=== PATIENT | female | born 2000 | race Caucasian/White ===

== ENCOUNTER 2022-03-27 06:28 | Inpatient (IN) | payer OTHER, SELFPAY ==
[2022-03-27] VITALS (109 sets, daily range): BP systolic 83–156; BP diastolic 47–111; PULSE 88–164; RESP 18; TEMP 36.5–37.2; O2SAT 97–100; BMI 281.1
--- NOTE | 2022-03-27 07:08 | LDADM ---
This patient, Janice Escobar, was admitted to Labor/Delivery/Recovery 106 on 03/27/22 at 06:28. Plans for labor, pain management and were discussed with patient. Patient/family oriented to hospital policies and general routines including ID bracelet, bed and alarms, visiting hours, pain management, procedures, bathroom and other care routines, personal items, smoking policy, room service/diet and guest tray routines, security routines, and visiting hours. Patient/Family are encouraged to report perceived risks to care and to ask questions if they do not understand what they are told or what they should do. See OBIX for further documentation.
--- NOTE | 2022-03-27 07:15 | WPDOBADMIT ---
Obstetrics - Admit Note Admission Note: record reviewed. Additions to the history and/or subsequent changes in the physical findings follow. 21 y/o G1 at 40 weeks gestation here for induction of labor. GBS neg. AVSS NST reactive TOCO: irregular contractions ABD soft, nontender, gravid, vertex EXT nontender Cervix 4/50/-2. AROM with clear fluid. Vertex. A: IUP at term with favorable cervix, desiring induction of labor. P: Oxytocin. Anticipate .
[2022-03-27 07:19] LABS: Basophils Absolute Auto 0.1 K/mm3 (0.0-0.1); Basophils Percent Auto 0.4 % (0.2-1.2); Eosinophils Absolute Auto 0.1 K/mm3 (0-0.3); Eosinophils Percent Auto 0.9 % (0-4.4); Hematocrit 36.8 % (37.0-47.0); Hemoglobin 12.4 g/dL (12.0-15.0); Immature Granulocyte Absolute 0.15 K/mm3 (0.00-0.031); Immature Granulocyte Percent A 1.2 % (0-0.5); Lymphocytes Absolute Auto 2.12 K/mm3 (0.9-3.2); Lymphocytes Percent Auto 17.2 % (18.3-44.2); Mean Corpuscular HGB Conc 33.7 g/dl (32-36); Mean Corpuscular Hemoglobin 31.6 pg (26-34); Mean Corpuscular Volume 93.6 fl (80-100); Mean Platelet Volume 11.3 fl (7.4-10.4); Monocytes Absolute Auto 1.1 K/mm3 (0.1-0.6); Monocytes Percent Auto 8.7 % (2.6-8.5); Neutrophils Absolute Auto 8.8 K/mm3 (1.3-6.7); Neutrophils Percent Auto 71.6 % (45.5-73.1); Platelet Count Result 144 k/mm3 (150-375); Red Blood Count 3.93 M/mm3 (4.2-5.4); Red Cell Distribution Width 13.2 % (11.5-14.5); White Blood Count 12.4 K/mm3 (4.5-10.0)
[2022-03-27] MEDS: OXYTOCIN 30 UNITS/NS 500 ML 30 UNITS/500 ML BAG 6 UNITS IV CONT (07:53)
[2022-03-27] MEDS: LACTATED RINGERS 1,000 ML 125 ML IV CONT ×2 (07:53→09:06)
[2022-03-27] MEDS: fentaNYL CITRATE INJ (*CRX) 100 MCG/2 ML VIAL 50 MCG IV PUSH (09:05)
--- NOTE | 2022-03-27 09:29 | WPDANESEPPF ---
Anes - Initial Pre Proc Eval Procedure: labor epidural Date/Time: 03/27/22 09:29 Surgeon: Johan Fermin MD Pre Op Diagnosis: labor pain Pre Op Diagnosis: iol Patient Data Age: 21 Gender: F Height: 60.96 cm Weight: 104.5 kg Last Vital Signs Pulse 103 H 03/27/22 09:27 BP 130/70 03/27/22 09:27 Pulse Ox 99 03/27/22 09:28 O2 Del Method Room Air 03/27/22 07:08 Allergies Allergy/AdvReac Type Severity Reaction Status Date / Time amoxicillin Allergy Hives Verified 03/05/22 15:35 Flu Shot Allergy Rash Uncoded 03/05/22 15:35 MRI contrast Allergy Hives Uncoded 03/05/22 15:35 Home Medications Medication Instructions Recorded Confirmed Type vit no.133-ferrous 1 tablet PO DAILY 03/27/22 03/27/22 History fumarate 28 mg-folic acid 800 mcg tablet () Laboratory Tests 03/27/22 03/27/22 03/27/22 07:04 07:05 07:58 WBC 12.4 K/mm3 H K/mm3 (4.5-10.0) RBC 3.93 M/mm3 L M/mm3 (4.2-5.4) Hgb 12.4 g/dL g/dL (12.0-15.0) Hct 36.8 % L % (37.0-47.0) MCV 93.6 fl fl (80-100) MCH 31.6 pg pg (26-34) MCHC 33.7 g/dl g/dl (32-36) RDW 13.2 % % (11.5-14.5) Plt Count 144 k/mm3 L k/mm3 (150-375) MPV 11.3 fl H fl (7.4-10.4) Immature Gran % (Auto) 1.2 % H % (0-0.5) Neut % (Auto) 71.6 % % (45.5-73.1) Lymph % (Auto) 17.2 % L % (18.3-44.2) [place] % (Auto) 8.7 % H % (2.6-8.5) Eos % (Auto) 0.9 % % (0-4.4) Baso % (Auto) 0.4 % % (0.2-1.2) Lymph # (Auto) 2.12 K/mm3 K/mm3 (0.9-3.2) [place] # (Auto) 1.1 K/mm3 H K/mm3 (0.1-0.6) Eos # (Auto) 0.1 K/mm3 K/mm3 (0-0.3) Baso # (Auto) 0.1 K/mm3 K/mm3 (0.0-0.1) Abs Immat Gran (auto) 0.15 K/mm3 H K/mm3 (0.00-0.031) Absolute Neuts (auto) 8.8 K/mm3 H K/mm3 (1.3-6.7) Absolute Nucleated RBC 0.0 K/mm3 K/mm3 (0.0-0.012) Nucleated RBC % 0.0 % % (0.0-0.2) RPR Pending Blood Type O Positive Antibody Screen Negative Patient hx anesthesia problems: none Family hx anesthesia problems: none Results Review: All pre-operative results and documents have been reviewed as part of the pre-operative evaluation. [facility] Family History Family History (Updated 03/05/22 @ 15:39 by Eva Chen RN) Grandparent Cancer Father Hypertension Mother Autoimmune disease of liver Grandparent Acute myocardial infarction Social History Social History Smoking status: Never smoker Substance use: never Lack of Transportation: No Lack of Food: Never True Current Housing: I Have Housing Concerned About Future Housing: No Difficulty Paying Gas/Electric Bills: No Difficulty Paying for Meds: No Currently Unemployed: No Education: High School Diploma/GED Difficulty w/ Childcare or Family Care: No Spiritual care concerns: No Anes - Eval Final PreProcedure Day of Procedure 03/27/22 09:29 Patient weight: morbidly obese ASA classification: III Anesthetic plan: proceed Anesthesia type and monitoring: regional epidural and standard monitoring Results Review: All pre-operative results and documents have been reviewed as part of the pre-operative evaluation. Informed Consent: The patient's anesthetic plan and its attendant risks and benefits were discussed with the patient/family/POA. Questions were solicited and answers provided to the satisfaction of the patient/family/POA.
[2022-03-27 13:35] LABS: Rapid Plasma Reagin Non-Reactive (NonReactive)
--- NOTE | 2022-03-27 14:24 | PM.OBPRVD ---
OB - Delivery Note Procedure Delivery date: 03/27/22 Procedure: Induction of labor with Induction method: Per Pitocin Protocol Delivery augmentation: Pitocin Delivery monitor: External FHT and External Uterine Route of delivery: Laceration Description: Perineal - 2nd Degree Delivery repair: vicryl (3-0) Specimen: Yes (cord blood) Quantitative Blood Loss (ml): 190 Anesthesia type: Epidural Disposition: PACU Complications: None Narrative: 21 y/o G1 at 40 weeks gestation who presented to the hospital for induction of labor. Oxytocin was administered intravenously. Amniotomy was performed with return of clear fluid. She received an epidural for pain control. Her labor progressed and her cervix dilated completely. She pushed with good effort and delivered the 's head to the perineum. A loose nuchal cord was splinted and the body delivered. The cord was reduced and the nose and mouth were bulb suctioned. After a delay, the cord was clamped and cut. The was handed off the field. Cord blood was collected. The placenta delivered spontaneously and was grossly normal in appearance. The usual 3 vessel cord was noted. A second degree midline perineal laceration was sustained. This was reapproximated using 3 0 Vicryl in the usual layered fashion. Excellent hemostasis resulted as did excellent reapproximation of the normal anatomy. Needle and instrument counts were correct. The patient was taken to recovery room in stable condition. The infant went to the nursery in stable condition. I was present and scrubbed for the entire delivery. Baby Date of : 03/27/22 Time of : 14:04 Weeks of gestation at delivery: 40 gender: Female Weight (pounds): 7 Weight (ounces): 9 presentation: vertex position: Left Occiput Anterior Placenta delivery description: Spontaneous and Normal Configuration Cord Vessel Description: 3 Vessels, Nuchal Cord and Delayed Cord Clamping score one minute: 7 score five minutes: 9
--- NOTE | 2022-03-27 14:26 | PM.OBDSVD ---
DS: Admitting Diagnosis Discharge Date 03/29/22 Admitting Diagnosis IUP at 40 weeks DS: Discharge Diagnosis Discharge Diagnosis (1) (normal spontaneous vaginal delivery): Code(s): O80 - Encounter for full-term uncomplicated delivery Status: Acute OB - DS: Summary OB Procedures : None OB Procedures Intrapartum: Spontaneous Vag Delivery OB Procedures: : None Time Spent with Patient Time attestation: Total time spent providing and/or coordinating discharge services: DS: Data Data Completed and Pending Labs on day of discharge: Labs from last 24 hours 03/27/22 03/27/22 03/27/22 07:58 07:05 07:04 WBC 12.4 H RBC 3.93 L Hgb 12.4 Hct 36.8 L MCV 93.6 MCH 31.6 MCHC 33.7 RDW 13.2 Plt Count 144 L MPV 11.3 H Immature Gran % (Auto) 1.2 H Neut % (Auto) 71.6 Lymph % (Auto) 17.2 L [place] % (Auto) 8.7 H Eos % (Auto) 0.9 Baso % (Auto) 0.4 Lymph # (Auto) 2.12 [place] # (Auto) 1.1 H Eos # (Auto) 0.1 Baso # (Auto) 0.1 Abs Immat Gran (auto) 0.15 H Absolute Neuts (auto) 8.8 H Absolute Nucleated RBC 0.0 Nucleated RBC % 0.0 RPR Non-reactive Blood Type O Positive Antibody Screen Negative Discharge Plan Discharge Attending physician on discharge: Johan Fermin Consulting providers: Marvin Alvarez ; Johanny Dodson Discharging Clinician: Johan Fermin Patient Disposition: Home, Self-Care Activity: pelvic rest Diet: regular Discharge Instructions: Education: Mom and Baby Guide Given to: Mother Follow-Up: Call your delivering provider's office for an appointment to be seen in: 6 Weeks Mom and baby should come to the [facility] for the follow-up appointment. Appointment Date/Time: March 31, 2022 at 9:00 am What to expect at your follow-up visit: Blood Pressure Check Physical Assessment Call [phone] if you are unable to keep your appointment time. BREAST CARE: * Wear a snug supportive bra. * For engorgement discomfort: Breast Feeding: * Apply warm moist washcloths * Express milk as needed to relieve engorgement * Wear loose clothing * For sore nipples: * Identify correct latch-on * Apply warm moist washcloths before and after nursing * Air dry nipples after nursing * May apply Lansinoh cream to nipples PERINEAL CARE: * Until bleeding stops, use your allan bottle after urinating * Change your pad frequently throughout the day * You may take sitz baths several times a day (fill your bathtub with warm water and soak for 20 minutes.) Do NOT bathe in the water * No tub baths until seen by your physician - You may shower ACTIVITY: * Rest as much as possible. * Do not exercise or lift anything heavier than your baby (such as laundry or other children.) * Avoid stairs or driving as much as possible. * Do not put anything into the vagina. No douching, tampons, or sexual activity until seen by physician. NOTIFY PHYSICIAN IF YOU HAVE ANY QUESTIONS OR IF ANY OF THE FOLLOWING SYMPTOMS OCCUR: * If your episiotomy or incision becomes red, swollen, or more painful than what you have experienced in the hospital. * If your vaginal bleeding becomes foul smelling. * If your vaginal bleeding becomes more heavy than a period or if your bleeding changes from pink to bright red. However, you may pass an occasional walnut-sized clot once or twice for the first week . * If you experience a sharp, shooting pain in your calves. * If you discover a hard, reddened area on your breast or if you experience flu-like symptoms. DIET: * Eat regular, well-balanced meals. * Drink plenty of fluids daily. If , drink to thirst. Call or return if temperature above 100.4? F, increased abdominal pain, increased vaginal bleeding or any new problems. Stand Alone Forms: General Discharge Information F
[2022-03-27] MEDS: METHYLERGONOVINE MALEATE 0.2 MG/ML VIAL IM (15:45)
--- NOTE | 2022-03-27 17:10 | OBPPTRN ---
Patient transferred to post room # 277 via wheelchair. Support person present. Oriented to unit, room, information board, rooming in, admission packet and security measures. Patient verbalizes understanding.
[2022-03-27] MEDS: IBUPROFEN 600 MG TABLET PO (22:07)
[2022-03-27] MEDS: ACETAMINOPHEN 325 MG TABLET 650 MG PO (22:07)
[2022-03-28] MEDS: ACETAMINOPHEN 325 MG TABLET 650 MG PO ×3 (04:30→23:29)
[2022-03-28] MEDS: IBUPROFEN 600 MG TABLET PO ×3 (04:30→18:46)
[2022-03-28 04:36] VITALS: BP 126/73; PULSE 104; RESP 18; TEMP 36.8
[2022-03-28 06:13] LABS: Hematocrit 30.2 % (37.0-47.0); Hemoglobin 10.2 g/dL (12.0-15.0)
--- NOTE | 2022-03-28 07:47 | WPDANLDPN2 ---
Anes-Prog Note L&D Date/Time: 03/28/22 07:47 Comfortable throughout: labor and delivery Neuraxial method: epidural Epidural/Spinal procedure site: clean & non-tender Neuro status: Neuro function grossly intact. Cardiovascular status: normal Respiratory status: normal Airway patency: baseline Mental status: baseline Post-Op hydration status: normal Vital Signs: Last Vital Signs Temp 36.8 C 03/28/22 04:36 Pulse 104 H 03/28/22 04:36 Resp 18 03/28/22 04:36 BP 126/73 03/28/22 04:36 Pulse Ox 100 03/27/22 14:02 O2 Del Method Room Air 03/28/22 04:38 Pain score (VAS): 05/20 I/O: Intake & Output 03/27/22 03/27/22 03/28/22 15:59 23:59 07:59 Intake Total 1000 240 Output Total 190 150 Balance 810 90 Post-procedural complaints: none Patient feedback: Patient satisfied with anesthetic care.
[2022-03-28 07:50] VITALS: BP 130/77; PULSE 110; RESP 18; TEMP 37.1; O2SAT 98
--- NOTE | 2022-03-28 08:56 | PM.OBPNVD ---
OB - PN: Subj Subjective Date/time seen: 03/28/22 08:56 Patient comments: no complaints and pain well controlled baby status: doing well OB - PN: Obj Data Labs CBC & Chem 7: 03/28/22 04:04 Labs: Laboratory Results - last 24 hr 03/27/22 03/27/22 03/28/22 07:04 07:58 04:04 Hgb 10.2 L Hct 30.2 L RPR Non-reactive Blood Type O Positive Antibody Screen Negative OB - PN A/P Plan day: 1 Plan: routine care Time Spent With Patient Time: Total time spent is greater than 50% in coordination of care (as documented) at patient's floor/unit and/or counseling patient: Time with patient: less than 15 minutes Exam Const: General: cooperative, healthy appearing and comfortable Nutritional Appearance: average body habitus Orientation/consciousness: oriented to person, oriented to place and oriented to time HENMT: Head: normal to inspection Resp: Effort & Inspection: normal respiratory effort GI: Inspection: normal to inspection ( fundus firm below the umbilicus)
[2022-03-28] MEDS: MULTIVIT/MIN/PREN/FOL AC/IRON TABLET 1 TAB PO (09:56)
[2022-03-28] MEDS: DOCUSATE SODIUM 100 MG CAPSULE PO (09:56)
--- NOTE | 2022-03-28 12:16 | PC.NURSE ---
[id number] Introductions were made, then consulted with patient to assess needs related to . Mother led the conversation with her?plans to feed?her infant and the?experience so far. Resources provided for inpatient and outpatient services using mom/baby guide. Mother voiced understanding of information and will call if there is a request for assistance. Reported to primary RN. [id number] Introductions were made, then consulted with patient to assess needs related to . Mother works well with her with encouragement. Encouraged understanding of the benefits of skin to skin (unwrapping and placing vertically on her chest), responsive feeding and how to watch for early feeding signs, frequency of feeding on demand about every 8-12 times in 24 hours (every 2-3 hours), milk production, duration of feeding, signs of adequate intake/output and how to record on the feeding sheet. Reviewed positioning and ear, shoulder, hip alignment, supporting the breast, asymmetrical latch (off-center), and leading with the chin with a big open side gape. Infant latched optimally to the right breast in cross cradle position. Education given to mother of how to visualize suck/swallow ratios and drinking at the breast. was able to maintain latch without discomfort to mother for 20 minutes. Nipple care reviewed with optimal latch and good positioning. decreased latch, reduced negative pressure on the breast and was detached after observing less than 90 degree latch. Mother placed infant back on her chest and stimulated infant for feeding cues. Mother's left nipple is inverted. makes great attempts with big, open, wide gape to latch and is unable to maintain latch. When infant does latch correctly she is able to pull the grade 2 inverted nipple out but still has difficulty maintaining latch. Discussed with mother the risks and benefits of nipple shield use and pumping the breast. Mother states she would like to try pumping her breast first, then latching her infant for the next practice. Mother is going to eat her breakfast, then call out later for assistance. Resources used to facilitate learning were used with the tool and mom/baby guide. Mother voiced understanding of responsive feedings, stimulating with skin to skin, hand expressed colostrum, massage touch, talking to infant to encourage if it has been 2 -3 hours since the start of the last , to call if infant does not latch or there is discomfort with . Reported to the primary RN.
[2022-03-28 12:30] VITALS: BP 127/72; PULSE 109; RESP 18; TEMP 36.9; O2SAT 98
--- NOTE | 2022-03-28 14:49 | PC.NURSE ---
[id number] Consulted with patient to assess needs related to . Mother works well with her infant. Reviewed working with , breast, nipples and how to protect the nipples with an optimal deep latch, good positioning, and good hand washing. Encouraged understanding the benefits of skin to skin, responding to feeding cues, frequencies of feeding 8-12 times in 24 hours (approximately 2-3 hours), duration of feedings, milk production, intake/output feeding sheet and signs of adequate intake encouraging swallowing at the breast. Reviewed positioning and alignment, supporting breast, off-centered (asymmetrical latch) and leading with the chin with big open wide gape. Several attempts were made to latch infant effectively to the left breast. Infant is unable to maintain latch. After a 15 minute attempt mother agreed with the decision to latch infant to the right breast. Infant latched optimally to the right breast in football position. Education given to mother of how to visualize suck/swallow ratios and listen for drinking at the breast. was able to maintain latch without discomfort to mother. Nipple care reviewed with optimal latch and good positioning and colostrum may be left on nipples to dry but have clean hands when touching the nipple/breast as needed. Breast pump provided due to ineffective on the left breast and to stimulate nipple to latch . Instructions given on cleaning, care, usage, that there should be no pain, pumping schedule for milk production, collection, and storage of human milk. Parents are encouraged to record pumping schedule on the feeding sheet. Patient was assessed for correct placement, flange size, to pump for comfort and nipple stretching/stimulation for adequate milk production every 3 hours (8 times in 24 hours) on the left breast if is not effectively on that side. Mother given a Zomee pump from [employer] through her insurance. Resources used to facilitate learning were used from the tool and mom/baby guide. Mother voiced understanding of the education shared, calling for assistance if the infant does not latch or if there is discomfort with . Reported to the primary RN.
[2022-03-28 18:45] VITALS: BP 124/85; PULSE 110; RESP 18; TEMP 36.8
--- NOTE | 2022-03-29 07:32 | P.PNOB_ITS ---
OB - PN: Subj Subjective Date/time seen: 03/29/22 07:32 Patient comments: no complaints and pain well controlled baby status: doing well OB - PN: Obj Data Labs CBC & Chem 7: 03/28/22 04:04 OB - PN A/P Plan day: 2 Plan: routine care, discharge home and follow up 6 weeks Time Spent With Patient Time: Total time spent is greater than 50% in coordination of care (as documented) at patient's floor/unit and/or counseling patient: Time with patient: less than 15 minutes Exam 2 Const: General: cooperative, healthy appearing and comfortable Nutritional Appearance: average body habitus Orientation/consciousness: oriented to person, oriented to place and oriented to time HENMT: Head: normal to inspection Resp: Effort & Inspection: normal respiratory effort GI: Inspection: normal to inspection (Fundus firm below the umbilicus)
[2022-03-29 08:30] VITALS: BP 139/68; PULSE 109; RESP 16; TEMP 37.2; O2SAT 99
--- NOTE | 2022-03-29 08:30 | PC.NURSE ---
Patient viewed the discharge video Mother & Baby Care, The First Two Weeks . Patient was given the opportunity and encouraged to ask questions. Patient verbalized understanding of information shared and has been given the mother/baby guide for home reference.
[2022-03-29] MEDS: DOCUSATE SODIUM 100 MG CAPSULE PO (08:36)
[2022-03-29] MEDS: IBUPROFEN 600 MG TABLET PO (08:36)
[2022-03-29] MEDS: MULTIVIT/MIN/PREN/FOL AC/IRON TABLET 1 TAB PO (08:36)
[2022-03-31 08:59] VITALS: BP 137/90; PULSE 103; RESP 20; TEMP 37.2; O2SAT 99
== END 2022-03-29 11:25 | disposition home or self-care (01) | DRG 807 ==
LOC: ANHLDR 12:11 → ANHOB2 03-28 12:31 → ANHLDR 04-02 08:40 → ANHOB2 04-02 08:40
PROVIDERS: Admitting Provider Obstetrics & Gynecology; Visit Provider Obstetrics & Gynecology
DX: O69.81X0 Labor and delivery complicated by cord around neck, without compression, not applicable or unspecified (principal); Z37.0 Single live birth; O70.1 Second degree perineal laceration during delivery; Z3A.40 40 weeks gestation of pregnancy
CPT/HCPCS: 36415; 85014; 85018; 85025; 86592; 86850; 86900; 86901; A9270; J2210; J2590; J2795; J3010; J7120

== ENCOUNTER → 2023-05-14 10:04 | Outpatient (CLI) | payer BC, SELFPAY ==
--- NOTE | ~2023-05-14 | US_ITS ---
EXAMINATION: US OB /maternal detail DATE: 05/14/2023 10:47 INDICATION: Second trimester anatomic survey TECHNIQUE: Real-time ultrasound of the pelvis was performed. COMPARISON: None. FINDINGS: There is a single living fetus in vertex presentation. The placenta is posterior and 9 mm from the in ternal cervical os. Placental lakes are noted. The measured cervical length is 3.4 cm. heart ra te is 163 beats per minute (bpm). cardiac activity and movement are noted. The amniotic fluid index is subjectively normal. The following anatomy was identified as normal: 4 chamber heart 3 vessel cord cord insertion kidneys urinary bladder stomach spine diaphragm ventricles cisterna magna cerebellum The following biometric data were obtained: Biparietal diameter (BPD): 4.4 cm; head circumference (HC): 16.5 cm; abdominal circumference (AC): 15 .4 cm; femur length (FL): 3.1 cm. These measurements are concordant. Estimated weight is 329 g +/- 49 g, which correlates with the 74th percentile when 10/04/2023 is used as estimated date of delivery. As single measurements, these parameters are each equal to the following estimated gestational ages w ith ranges of +/- 2 standard deviations: BPD: 19 weeks 2 days ( 17 weeks 3 days - 21 weeks 0 days). HC: 19 weeks 2 days ( 17 weeks 5 days - 20 weeks 5 days). AC: 20 weeks 4 days ( 18 weeks 4 days - 22 weeks 4 days). FL: 19 weeks 5 days ( 18 weeks 0 days - 21 weeks 4 days). estimated gestational age based solely on measurements from this exam is 19 weeks 5 days +/- 1 weeks 3 days. IMPRESSION: 1. Single living fetus in vertex presentation. 2. Estimated weight is 329 g +/- 49 g, which correlates with the 74th percentile when 10/04/2023 is used as estimated date of delivery. 3. Low-lying placenta. Reviewed, dictated and finalized at location A. [facility] IMPRESSION: 1. Single living fetus in vertex presentation. 2. Estimated weight is 329 g +/- 49 g, which correlates with the 74th per centile when 10/04/2023 is used as estimated date of delivery. 3. Low-lying placenta.
== END ==
PROVIDERS: PCP Obstetrics & Gynecology; Visit Provider Obstetrics & Gynecology
DX: Z36.3 Encounter for antenatal screening for malformations (principal); Z3A.19 19 weeks gestation of pregnancy
CPT/HCPCS: 76805

== ENCOUNTER 2023-08-05 12:18 | Outpatient (RCR) | payer BC, SELFPAY ==
[2023-08-05 13:24] VITALS: BP 122/62; PULSE 111
== END 2023-10-26 08:18 | disposition home or self-care (01) ==
LOC: ANHOBOP 12:18
PROVIDERS: PCP Internal Medicine; Visit Provider Obstetrics & Gynecology
DX: O36.8130 Decreased fetal movements, third trimester, not applicable or unspecified (principal); Z3A.31 31 weeks gestation of pregnancy
CPT/HCPCS: 59025

== ENCOUNTER 2023-08-22 12:08 | Observation (INO) | payer BC, SELFPAY ==
[2023-08-22] VITALS (8 sets, daily range): BP systolic 112–134; BP diastolic 60–74; PULSE 93–110; BMI 40.3
--- NOTE | 2023-08-22 12:15 | OBADM ---
This patient, Janice Escobar, admitted to the OB room OB Post 113 for observation. Patient/family oriented to hospital policies and general routines including ID bracelet, bed and alarms, visiting hours, pain management, procedures, bathroom and other care routines, personal items, smoking policy, room service/diet, and visiting hours. Patient/Family are encouraged to report perceived risks to care and to ask questions if they do not understand what they are told or what they should do.
--- NOTE | 2023-08-22 13:01 | PC.NURSE ---
Dr Villarreal notified of contractions and negative ROM plus. Orders received.
[2023-08-22] MEDS: TERBUTALINE SULFATE 1 MG/ML VIAL 0.25 MG SUB-Q (13:36)
[2023-08-22 13:59] LABS: Appearance Urine Cloudy (Clear); Bacteria Urine 2+ /hpf; Bilirubin Urine Negative (Negative); Blood Urine 2+ (Negative); Color Urine Yellow (Yellow); Glucose Urine UA Trace mg/dL (Negative); Ketones Urine Negative (Negative); Leukocyte Esterase Ur 2+ LEU/UL (Negative); Need Manual Microscopic Reviewed; Nitrate Urine Negative (Negative); Non Pathogenic Casts 0-2; Protein Urine Negative (Negative); RBC Urine 0-2 /hpf (0-2); Squamous Epithelial Cell Urine Many /hpf (Few); Urobilinogen Urine 0.2 mg/dL (<2.0); WBC Urine 21-50 /hpf (0-3)
[2023-08-22 14:02] LABS: Add Urine Microscopic? YES
--- NOTE | 2023-08-28 13:25 | PM.OBTRLD ---
OB - Triage/Final Diagnosis Visit Information Reason for evaluation: other (vaginal discharge) Comments/Additional reasons for admission: I have assessed the risk for this patient, Janice Escobar, and determined that she would benefit from observation care. Evaluation Laboratory results: Laboratory Tests 08/22/23 13:30 Urine Color Yellow Urine Appearance Cloudy H Urine pH 7.0 Ur Specific [place] 1.010 Urine Protein Negative Urine Glucose (UA) Trace H Urine Ketones Negative Ur Blood (Man) 2+ H Urine Nitrate Negative Urine Bilirubin Negative Urine Urobilinogen 0.2 Add Ur Microanalysis Reviewed Leukocyte Esterase Rfl 2+ H Urine RBC 0-2 Urine WBC 21-50 H Ur Squamous Epith Cells Many H Urine Bacteria 2+ H Urine Casts 0-2
== END 2023-08-22 14:45 | disposition home or self-care (01) ==
PROVIDERS: Admitting Provider Obstetrics & Gynecology Gynecology; PCP Internal Medicine; Visit Provider Obstetrics & Gynecology Gynecology
DX: O26.893 Other specified pregnancy related conditions, third trimester (principal); N89.8 Other specified noninflammatory disorders of vagina; Z3A.33 33 weeks gestation of pregnancy
CPT/HCPCS: 81001; 84112; 87086; 87088; 96372; G0378; G0379; J3105

== ENCOUNTER 2023-09-30 04:56 | Inpatient (IN) | payer BC, SELFPAY ==
[2023-09-30] VITALS (122 sets, daily range): BP systolic 76–141; BP diastolic 30–113; PULSE 74–134; RESP 20; TEMP 36.1–37.2; O2SAT 94–100; BMI 44.3
--- NOTE | 2023-09-30 05:34 | ADMGEN ---
This patient, Janice Escobar, was admitted to Labor/Delivery/Recovery 103-00. Patient/family oriented to hospital policies and general routines including ID bracelet, bed and alarms, visiting hours, pain management, procedures, bathroom and other care routines, personal items, smoking policy, room service/diet, and visiting hours. Information on how to activate the Rapid Response Team has been discussed. Patient/Family are encouraged to report perceived risks to care and to ask questions if they do not understand what they are told or what they should do.
[2023-09-30 05:49] LABS: Basophils Percent Auto 0.2 % (0.2-1.2); Eosinophils Absolute Auto 0.1 K/mm3 (0-0.3); Eosinophils Percent Auto 0.6 % (0-4.4); Hematocrit 38.6 % (37.0-47.0); Hemoglobin 13.2 g/dL (12.0-15.0); Immature Granulocyte Absolute 0.13 K/mm3 (0.00-0.031); Immature Granulocyte Percent A 1.4 % (0-0.5); Immature Platelet Fraction Pct 6.3 % (0.9-11.2); Lymphocytes Absolute Auto 1.43 K/mm3 (0.9-3.2); Lymphocytes Percent Auto 15.4 % (18.3-44.2); Mean Corpuscular HGB Conc 34.2 g/dl (32-36); Mean Corpuscular Hemoglobin 31.8 pg (26-34); Mean Platelet Volume 10.5 fl (7.4-10.4); Monocytes Absolute Auto 0.6 K/mm3 (0.1-0.6); Monocytes Percent Auto 6.7 % (2.6-8.5); Neutrophils Percent Auto 75.7 % (45.5-73.1); Platelet Count Result 120 k/mm3 (150-375); Red Blood Count 4.15 M/mm3 (4.2-5.4); Red Cell Distribution Width 13.8 % (11.5-14.5); White Blood Count 9.3 K/mm3 (4.5-10.0)
[2023-09-30] MEDS: OXYTOCIN 30 UNITS/NS 500 ML 30 UNITS/500 ML BAG IV CONT (06:34)
[2023-09-30] MEDS: LACTATED RINGERS 1,000 ML 125 ML IV CONT ×2 (06:35→07:45)
--- NOTE | 2023-09-30 06:41 | WPDANESEPP ---
Anes - Eval Pre Procedure Procedure: labor epidural Date/Time: 09/30/23 06:41 Surgeon: [email or web address] Preop Diagnosis: pain during labort Pre Op Diagnosis: IOL Patient Data Age: 23 Gender: F Height: 1.57 m Weight: 110 kg Last Vital Signs Pulse 102 H 09/30/23 06:31 BP 136/75 09/30/23 06:31 O2 Del Method Room Air 09/30/23 05:42 Allergies Allergy/AdvReac Type Severity Reaction Status Date / Time amoxicillin Allergy Hives Verified 09/30/23 05:29 Penicillins Allergy Hives Verified 09/30/23 05:29 Flu Shot Allergy Rash Uncoded 09/30/23 05:29 MRI contrast Allergy Hives Uncoded 09/30/23 05:29 Home Medications Medication Instructions Recorded Confirmed Type vit no.133-ferrous 1 tablet PO DAILY 03/27/22 09/30/23 History fumarate 28 mg-folic acid 800 mcg tablet () sertraline 150 mg capsule 150 mg PO DAILY 09/04/23 09/30/23 History Laboratory Tests 09/30/23 05:18 WBC 9.3 K/mm3 (4.5-10.0) RBC 4.15 L M/mm3 (4.2-5.4) Hgb 13.2 D g/dL (12.0-15.0) Hct 38.6 % (37.0-47.0) MCV 93.0 fl (80-100) MCH 31.8 pg (26-34) MCHC 34.2 g/dl (32-36) RDW 13.8 % (11.5-14.5) Plt Count 120 L k/mm3 (150-375) MPV 10.5 H fl (7.4-10.4) Immature Gran % (Auto) 1.4 H % (0-0.5) Neut % (Auto) 75.7 H % (45.5-73.1) Lymph % (Auto) 15.4 L % (18.3-44.2) [place] % (Auto) 6.7 % (2.6-8.5) Eos % (Auto) 0.6 % (0-4.4) Baso % (Auto) 0.2 % (0.2-1.2) Lymph # (Auto) 1.43 K/mm3 (0.9-3.2) [place] # (Auto) 0.6 K/mm3 (0.1-0.6) Eos # (Auto) 0.1 K/mm3 (0-0.3) Baso # (Auto) 0.0 K/mm3 (0.0-0.1) Abs Immat Gran (auto) 0.13 H K/mm3 (0.00-0.031) Absolute Neuts (auto) 7.0 H K/mm3 (1.3-6.7) Absolute Nucleated RBC 0.000 K/mm3 (0.0-0.012) Nucleated RBC % 0.0 % (0.0-0.2) % Immature Plt Fraction 6.3 % (0.9-11.2) RPR Pending Patient hx anesthesia problems: none Family hx anesthesia problems: none Results Review: All pre-operative results and documents have been reviewed as part of the pre-operative evaluation. FORMERLY [facility], [facility]–1983 Past Medical History Medical History (Updated 09/30/23 @ 06:42 by Hyun Gupta CRNA) Depression IUP (intrauterine ), incidental Morbid obesity Family History Family History Grandparent Cancer Father Hypertension Mother Autoimmune disease of liver Grandparent Acute myocardial infarction Social History Social History Smoking status: Never smoker Substance use: never Do You Feel Safe in your Home?: Yes Lack of Transportation: No Lack of Food: Never True Current Housing: I Have Housing Concerned About Future Housing: No Difficulty Paying Gas/Electric Bills: No Difficulty Paying for Meds: No Currently Unemployed: No Education: High School Diploma/GED Difficulty w/ Childcare or Family Care: No Spiritual care concerns: No Exam Day of Procedure 09/30/23 06:41
--- NOTE | 2023-09-30 08:37 | WPDOBADMIT ---
Obstetrics - Admit Note Admission Note: record reviewed. Additions to the history and/or subsequent changes in the physical findings follow. 23 y/o at 39 3/7 weeks here for induction of labor. GBS neg. History of fast labor. Now comfortable with epidural. AVSS NST reactive TOCO: irregular contractions ABD soft, nontender, gravid, vertex EXT nontender Cervix 4-5/50/-2. AROM with meconium-stained fluid. IUPC placed. A: IUP at term with favorable cervix. P: Oxytocin. Anticipate . Peds aware of meconium.
[2023-09-30] MEDS: ONDANSETRON INJ 4 MG/2 ML VIAL IV PUSH (08:45)
[2023-09-30] MEDS: PHENYLEPHRINE 1,000 MCG/10 ML SYRINGE 100 MCG IV PUSH ×2 (10:17→10:25)
--- NOTE | 2023-09-30 12:22 | PM.OBPRVD ---
OB - Vaginal Delivery Note Procedure Delivery date: 09/30/23 Induction method: Per Pitocin Protocol Delivery monitor: External FHT, External Uterine and Internal Uterine Route of delivery: Episiotomy description: None Laceration Description: None Specimen: Yes (cord blood) Quantitative Blood Loss (ml): 120 Anesthesia type: Epidural Disposition: PACU Complications: None Narrative: 23 y/o at 39 3/7 weeks gestation who presented to the hospital for induction of labor. Oxytocin was administered intravenously. Amniotomy was performed with return of meconium-stained fluid. Pediatrics was made aware of meconium. She received an epidural for pain control. Her labor progressed and her cervix dilated completely. She pushed with good effort and delivered the 's head to the perineum, followed by the body. The nose and mouth were bulb suctioned. After a delay, the cord was clamped and cut. The was handed off the field. Cord blood was collected. The placenta delivered spontaneously and was grossly normal in appearance. The usual 3 vessel cord was noted. There were no lacerations. Needle and instrument counts were correct. The patient was taken to recovery room in stable condition. The infant went to the nursery in stable condition. I was present and scrubbed for the entire delivery. Baby Date of : 09/30/23 Time of : 12:08 Weeks of gestation at delivery: 39 gender: Female Weight (pounds): 7 Weight (ounces): 11 presentation: vertex position: Left Occiput Anterior Placenta delivery description: Spontaneous and Normal Configuration Cord Vessel Description: 3 Vessels and Delayed Cord Clamping score one minute: 8 score five minutes: 9
--- NOTE | 2023-09-30 12:25 | P.DS_ITS ---
DS: Admitting Diagnosis Discharge Date 10/01/23 Admitting Diagnosis IUP at 39 3/7 weeks DS: Discharge Diagnosis Discharge Diagnosis (1) (normal spontaneous vaginal delivery): Code(s): O80 - Encounter for full-term uncomplicated delivery Status: Acute OB - DS: Summary OB Procedures : None OB Procedures Intrapartum: Spontaneous Vag Delivery OB Procedures: : None Peripartum Data Laceration Description: None Episiotomy description: None Time Spent with Patient Time attestation: Total time spent providing and/or coordinating discharge services: DS: Data Data Completed and Pending Labs on day of discharge: Labs from last 24 hours 09/30/23 05:18 WBC 9.3 RBC 4.15 L Hgb 13.2 D Hct 38.6 MCV 93.0 MCH 31.8 MCHC 34.2 RDW 13.8 Plt Count 120 L MPV 10.5 H Immature Gran % (Auto) 1.4 H Neut % (Auto) 75.7 H Lymph % (Auto) 15.4 L [place] % (Auto) 6.7 Eos % (Auto) 0.6 Baso % (Auto) 0.2 Lymph # (Auto) 1.43 [place] # (Auto) 0.6 Eos # (Auto) 0.1 Baso # (Auto) 0.0 Abs Immat Gran (auto) 0.13 H Absolute Neuts (auto) 7.0 H Absolute Nucleated RBC 0.000 Nucleated RBC % 0.0 % Immature Plt Fraction 6.3 RPR Pending Blood Type O Positive Antibody Screen Negative Discharge Plan Discharge Attending physician on discharge: Johan Fermin Discharging Clinician: Johan Fermin Patient Disposition: Home, Self-Care Activity: pelvic rest Diet: regular Discharge Instructions: Call or return if temperature above 100.4? F, increased abdominal pain, increased vaginal bleeding or any new problems. Stand Alone Forms: General Discharge Information Follow-up/Referrals: Johan Fermin MD [Physician] - 6 Weeks Discharge Medications: New ibuprofen 600 mg tablet 600 mg PO Q6H PRN (Reason: cramps) Qty: 30 0RF Continued 28-800 mg-mcg Tablet 1 tablet PO DAILY sertraline 150 mg capsule 150 mg PO DAILY Date of admission: 09/30/23 04:56 Primary Care Provider: Jose Ward Admitting Provider: Johan Fermin Attending physician on admission: Johan Fermin Condition: Stable
[2023-09-30] MEDS: OXYTOCIN 30 UNITS/NS 500 ML 30 UNITS/500 ML BAG 125 UNITS IV CONT (13:00)
--- NOTE | 2023-09-30 14:56 | OBPPTRN ---
1442-Patient transferred to post room #285 via wheelchair. Support person present. Oriented to unit, room, information board, rooming in, admission packet and security measures. Patient verbalizes understanding.
[2023-09-30 15:20] LABS: Rapid Plasma Reagin Non-Reactive (NonReactive)
[2023-09-30] MEDS: IBUPROFEN 600 MG TABLET PO (15:36)
[2023-09-30] MEDS: ACETAMINOPHEN 325 MG TABLET 650 MG PO (17:00)
[2023-10-01 00:50] VITALS: BP 131/74; PULSE 116; RESP 20; TEMP 37.3; O2SAT 98
[2023-10-01] MEDS: IBUPROFEN 600 MG TABLET PO ×2 (03:29→16:20)
[2023-10-01 06:02] LABS: Hematocrit 35.9 % (37.0-47.0)
[2023-10-01 08:25] VITALS: BP 113/72; PULSE 94; RESP 16; TEMP 36.5; O2SAT 100
[2023-10-01] MEDS: MULTIVIT/MIN/PREN/FOL AC/IRON TABLET 1 TAB PO (09:07)
[2023-10-01] MEDS: ACETAMINOPHEN 325 MG TABLET 650 MG PO (09:07)
--- NOTE | 2023-10-01 13:51 | PC.NURSE ---
[id number] Introductions were made, then consulted with patient to assess needs related to . Discussed with mother her?plans to feed?her with pumping the?experience so far. Resources provided for inpatient and outpatient services with the feeding sheet, mom/baby guide and name written on the communication board. Mother voiced understanding of information and encouraged to call for a pump flange assessment. [id number] Breast pump provided due to mother's preference. Instructions given on cleaning, care, usage, that there should be no pain, pumping schedule for milk production, collection, and storage of human milk. Patient was assessed for correct placement, flange size (21mm), to pump for comfort and nipple stretching/stimulation for adequate milk production every 3 hours (8 times in 24 hours) 1-2 times at night. Mother is encouraged to record the pumping schedule on the feeding sheet.?Mother voiced understanding of the education shared along with mom/baby guide and the pump measurement, flange fit handout for additional resource information.
--- NOTE | 2023-10-01 15:57 | WPDANLDPN2 ---
Anes-Prog Note L&D Date/Time: 10/01/23 15:57 Comfortable throughout: labor and delivery Neuraxial method: epidural Epidural/Spinal procedure site: clean & non-tender Neuro status: Neuro function grossly intact. Cardiovascular status: normal Respiratory status: normal Airway patency: baseline Mental status: baseline Post-Op hydration status: normal Vital Signs: Last Vital Signs Temp 36.5 C 10/01/23 08:25 Pulse 94 10/01/23 08:25 Resp 16 10/01/23 08:25 BP 113/72 10/01/23 08:25 Pulse Ox 100 10/01/23 08:25 O2 Del Method Room Air 09/30/23 15:00 Pain score (VAS): 05/20 Post-procedural complaints: none Patient feedback: Patient satisfied with anesthetic care.
--- NOTE | 2023-10-01 16:58 | PM.OBPNVD ---
OB - PN: Subj Subjective Date/time seen: 10/01/23 16:58 Narrative: Pain OK. Would like to go home. OB - PN: Obj Data Labs 10/01/23 03:22 Labs: Laboratory Results - last 24 hr 10/01/23 03:22 Hgb 12.0 Hct 35.9 L OB - PN A/P Plan Comments: A: PPD#1, doing well. P: Home to f/u 6 weeks. Exam Psych: Other: AVSS ABD soft, nontender, fundus firm EXT nontender
[2023-10-02 10:56] VITALS: BP 125/75; PULSE 98; RESP 18; TEMP 36.8; O2SAT 99
== END 2023-10-01 19:10 | disposition home or self-care (01) | DRG 807 ==
LOC: ANHLDR 12:26 → ANHOB2 15:09
PROVIDERS: Admitting Provider Obstetrics & Gynecology; PCP Internal Medicine; Visit Provider Obstetrics & Gynecology
DX: O77.0 Labor and delivery complicated by meconium in amniotic fluid (principal); Z37.0 Single live birth; Z3A.39 39 weeks gestation of pregnancy
CPT/HCPCS: 36415; 85014; 85018; 85025; 85055; 86592; 86850; 86900; 86901; A9270; J2371; J2405; J2590; J2795; J7120